=== PATIENT | female | born 1950 | race Caucasian/White ===

== ENCOUNTER 2018-04-18 00:23 | Inpatient (IN) | payer MEDICARE, OTHER ==
[2018-04-17 14:45] LABS: INR 1.01
[2018-04-18] VITALS (16 sets, daily range): BP systolic 96–131; BP diastolic 58–86
[~2018-04-18] VITALS: Ht 167.6 cm; Wt 125.8 kg
[~2018-04-18 00:23] MED LIST: ALLO-119 PO; ASPI-1471 PO; ATOR20TA22 PO; BUDE10.25 IH; CELE-1 PO; DOCU-416 PO; EMPA10TA PO; LANS30TA12 PO; LISI-362 PO; LORA-629 PO; METO25TA23 PO; MONT10TA PO; SERT-184 PO; SITA1TAB13 PO; TIMO5DRO3 OU
[2018-04-18] MEDS ORDERED: TRANEXAMIC AC 1000 MG/10ML SDV 1,000 MG in DEXTROSE 5% 50 ML BAG 50 ML IV ONE (06:15)
[2018-04-18] MEDS ORDERED: cloNIDine EPIDUR INJ 100MCG/ML 40 MCG, ROPIVACAINE 0.5% 20 ML VIAL 25 ML, EPINEPHrine H... INJ ONE (06:15)
[2018-04-18] MEDS ORDERED: PREGABALIN 150 MG CAPSULE PO ONE (06:15)
[2018-04-18] MEDS ORDERED: ACETAMINOPHEN 500 MG TAB PO ONE (06:15)
[2018-04-18] MEDS ORDERED: NORMOSOL R SOLN(*) 1000 ML BAG 1,000 ML IV PRN ×2 (06:15→09:50)
[2018-04-18] MEDS ORDERED: CLINDAMYCIN(*) 900 MG/NS 50 ML 50 ML IVPB ONE (06:15)
[2018-04-18] MEDS ORDERED: MIDAZOLAM 2 MG/2 ML VIAL IVP PRN (06:15)
[2018-04-18] MEDS ORDERED: LIDOCAINE/SOD BICARB 8.4% SYR ID ONE (06:15)
[2018-04-18] MEDS ORDERED: ONDANSETRON 4 MG/2 ML VIAL ONE (07:24)
[2018-04-18] MEDS ORDERED: DEXAMETHASONE SOD PHOS 10MG/ML ONE (07:24)
[2018-04-18] MEDS ORDERED: PROPOFOL EMUL(*) 10MG/ML 20 ML 20 ML ONE (07:24)
[2018-04-18] MEDS ORDERED: PHENYLEPHRINE 10 MG/1 ML VIAL ONE (07:30)
--- NOTE | 2018-04-18 08:07 | HISTORY AND PHYSICAL ---
DATE OF ADMISSION: Apr 18, 2018 IDENTIFICATION/CHIEF COMPLAINT Juhi is a 67-year-old woman with the chief complaint of right knee pain. HISTORY OF PRESENT ILLNESS Patient has a long-standing history of knee arthritis, progressively painful and debilitating, refractory to conservative care. Surgery is indicated to relieve symptoms after failure of nonoperative measures. PAST MEDICAL HISTORY * History of DVT and pulmonary embolus. * History of hypertension, well controlled on medication. * Pulmonary hypertension with mild CHF. * Sleep apnea, uses CPAP. PAST SURGICAL HISTORY * Lumpectomy. * Left tubal ligation. * Oophorectomy. ALLERGIES 1. SULFA. 2. PENICILLIN. CURRENT MEDICATIONS * Celebrex 200 mg p.o. q.day. * Singulair 10 mg p.o. q.day. * Symbicort 80 mcg b.i.d. * Lisinopril 10 mg p.o. q.day. * Jardiance 10 mg p.o. q.day. * Allopurinol 100 mg p.r.n. * Metoprolol 25 mg b.i.d. * Prevacid 30 mg p.o. q.day. * Cetirizine 50 mg p.o. q.day. * Montelukast 10 mg p.o. q.day. * Janumet 500 mg b.i.d. SOCIAL HISTORY Notable for smoking a pack a day of cigarettes for 30 years. Denies alcohol use , abuse or drug use. FAMILY HISTORY Notable for brother with eye cancer, mother with colon cancer and sister with breast cancer. REVIEW OF SYSTEMS Notable for diabetes and fatty liver disease. PHYSICAL EXAMINATION: GENERAL: This is a well-developed, well-nourished female who appears staged age. HEENT: Normocephalic, atraumatic. NECK: Supple. LUNGS: Clear. HEART: Regular. ABDOMEN: Soft. ORTHOPEDIC EXAM: Knee is stiff. Effusion is present. She is stiff and has limitations at the end range. Gross stability is good. Extensor function intact. IMAGING Radiographs demonstrate end-stage knee arthritis. ASSESSMENT Right knee degenerative joint disease progressively painful and debilitating, refractory to conservative care. PLAN Per patient request we are going to proceed with total knee arthroplasty. The nature of the procedure, risks, benefits, the anticipated rehabilitative course were reviewed. The risks of the procedure include, but are not limited to , major medical or anesthetic complication, infection, neurovascular injury, blood transfusion, stiffness, scarring, fracture, tendon rupture or instability , implant loosening, migration or failure, persistent or recurrent pain, need for additional surgery and other unforeseen. She understands and wishes to proceed. A signed permit was placed in the chart. No guarantees are given or implied. Xarelto will be used for DVT prophylaxis due to high risk stratification from prior DVT. SAMMY
[2018-04-18] MEDS ORDERED: MAGNESIUM HYDROXIDE* 30ML UDCP PO PRN (09:50)
[2018-04-18] MEDS ORDERED: FLUSH 10 ML SYR IVP PRN (09:50)
[2018-04-18] MEDS ORDERED: ZOLPIDEM TARTRATE 5 MG TAB PO PRN (09:50)
[2018-04-18] MEDS ORDERED: ACETAMINOPHEN 325 MG TAB PO PRN (09:50)
[2018-04-18] MEDS ORDERED: BISACODYL 10 MG SUPP PR PRN (09:50)
[2018-04-18] MEDS ORDERED: diphenhydrAMINE 50 MG/ML VIAL IVP PRN (09:50)
[2018-04-18] MEDS ORDERED: BENZOCAINE/MENTHOL 1 EACH LOZG PO PRN (09:50)
[2018-04-18] MEDS ORDERED: PROMETHAZINE 25 MG/ML 1 ML AMP IVP PRN (09:50)
[2018-04-18] MEDS ORDERED: diphenhydrAMINE 25 MG CAP PO PRN (09:50)
--- NOTE | 2018-04-18 10:25 | RADIOLOGY IMAGING REPORT ---
FACILITY: [facility] - [place] PATIENT NAME: Juhi Garner : 1950 MR: [id number] V: [id number] EXAM DATE: ORDERING PHYSICIAN: JESSICA FLAHERTY TECHNOLOGIST: Location: [facility] - [place] Patient: Juhi Garner : 1950 Visit/Account:[id number] Date of Sevice: 04/18/2018 Technique: KNEE LIMITED RIGHT HISTORY: S/P TOTAL KNEE ARTHROPLASTY, CHECK PLACEMENT Comparison studies: None FINDINGS: There is no acute fracture. Present is a right knee arthroplasty with patellar resurfacing. The anatomic alignment is maintained. Expected adjacent operative findings are noted. IMPRESSION: 1. Right knee arthroplasty without evidence of hardware complication. Report Dictated By: Philip Haro DO at 04/18/2018 10:19 AM Report E-Signed By: Philip Haro DO at 04/18/2018 10:21 AM WSN:[id number]
[2018-04-18] MEDS ORDERED: METO25TA93 PO (10:56)
--- NOTE | 2018-04-18 11:44 | Hospitalist Consultation ---
History of Present Illness Requesting Physician Dr. Hilliard Reason for Consult Medical Management Chief Complaint s/p right total knee replacement History of Present Illness She was admitted s/p right total knee replacement. It is reported the surgery went well and without complication. History Problems: (1) GERD (gastroesophageal reflux disease) Status: Chronic (2) Hyperlipidemia Status: Chronic (3) Hypertension Status: Chronic (4) Type 2 diabetes mellitus Status: Chronic (5) CHF (congestive heart failure) Status: Chronic (6) COPD (chronic obstructive pulmonary disease) Status: Chronic (7) PARAMJIT (obstructive sleep apnea) Status: Chronic (8) Seasonal allergies Status: Chronic (9) History of DVT (deep vein thrombosis) Status: Resolved Home Meds Reported Medications Metoprolol Tartrate (METOPROLOL TARTRATE) 25 Mg Tablet, 1 TAB PO BID, TAB 04/18/18 Budesonide/Formoterol Fumarate (SYMBICORT 80-4.5 MCG INHALER) 10.2 Gm Hfa.aer.ad , 2 PUFF IH BID 04/11/18 Timolol (BETIMOL) 5 Ml Drops, 1 DROP OU HS 04/11/18 Docusate Sodium (COLACE) 100 Mg Capsule, 100 MG PO HS, CAPSULE 04/11/18 Montelukast Sodium (SINGULAIR) 10 Mg Tablet, 1 TAB PO HS, TAB 04/11/18 Atorvastatin Calcium (LIPITOR) 20 Mg Tablet, 1 TAB PO HS, TAB 04/11/18 Aspirin (ASPIR 81) 81 Mg Tablet.dr, 81 MG PO QDAY, TAB 04/11/18 Loratadine (LORATADINE) 10 Mg Tablet, 10 MG PO DAILY 04/11/18 Empagliflozin (Jardiance) 10 Mg Tablet, 1 TAB PO DAILY 04/11/18 Allopurinol (ZYLOPRIM) 300 Mg Tablet, 100 MG PO QDAY, TAB 04/11/18 Celecoxib (CELEBREX) 200 Mg Capsule, 200 MG PO QDAY, CAPSULE 04/11/18 Sertraline Hcl (SERTRALINE HCL) 50 Mg Tablet, 1 TAB PO QDAY, TAB 04/11/18 Lisinopril (LISINOPRIL) 10 Mg Tablet, 10 MG PO QDAY, TAB 04/11/18 Lansoprazole (PREVACID) 30 Mg Tab.rap.dr, 30 MG PO QDAY, TAB 5/29/18 Sitagliptin Phos/Metformin Hcl (JANUMET 50-500 MG TABLET) 1 Each Tablet, 1 TAB PO BID 04/11/18 Discontinued Reported Medications Metoprolol Succinate (METOPROLOL SUCCINATE) 25 Mg Tab.er.24h, 1 TAB PO BID, TAB 04/11/18 Allergies: Coded Allergies: Penicillins (Verified Allergy, Severe, REDNESS, ITCHING, 04/11/18) Sulfa (Sulfonamide Antibiotics) (Verified Allergy, Severe, REDNESS, ITCHING, 04/11/18) Patient History: FH: breast cancer MOTHER FH: colon cancer MOTHER FH: diabetes mellitus MOTHER Hx Smoking: Yes (1 PPD X 30. QUIT 1999) Smoking Status: Former Smoker When Quit Tobacco?: QUIT 1999 Caffeine/Cups Per Day: NONE Hx Alcohol Use: No Hx Substance Use Disorder: No Social Drug Use: Never History of IV Drug Use: No Review of Systems All Systems Reviewed/Normal: Yes, Except as Noted Exam Vital Signs Vital Signs Date Time Temp Pulse Resp B/P (MAP) Pulse Ox O2 Delivery O2 Flow Rate FiO2 04/18/18 11:11 91 Nasal Cannula 3.0 04/18/18 10:50 97.8 80 18 131/58 (82) General Appearance: Alert, Awake, No Acute Distress, Afebrile Neuro: No Gross deficits Cardiovascular: Regular Rate and Rhythm Respiratory: No Respiratory Distress, Clear to Auscultation GI: Abd Soft and Non-Tender Psych: Alert & Oriented X3, Appropriate Mood & Affect Assessment and Plan Problems: (1) Status post total right knee replacement Status: Acute Assessment & Plan: Followed by Dr. Hilliard. She will be placed on Xarelto for DVT prophylaxis since she has a history of DVT and PE 6 years ago. (2) History of DVT (deep vein thrombosis) Status: Resolved Assessment & Plan: See above. (3) Type 2 diabetes mellitus Status: Chronic Assessment & Plan: She is on chronic treatment with Janumet and Jardiance. She will be restarted on Janumet tomorrow, but we will hold Jardiance at this time. She will get AC and HS blood sugars, ADA diet, and sliding scale insulin #2. (4) Hypertension Status: Chronic Assessment & Plan: She is on chronic treatment with Lisinopril and Metoprolol. These have been restarted with hold parameters. (5) COPD (chronic obstructive pulmonary disease) Status: Chronic Assessment & Plan: She is on chronic treatment with Symbicort. (6) Seasonal allergies Status: Chronic Assessment & Plan: She is on chronic treatment with Loratadine. (7) Hyperlipidemia Status: Chronic Assessment & Plan: She is on chronic treatment with Atorvastatin. (8) GERD (gastroesophageal reflux disease) Status: Chronic Assessment & Plan: She is on chronic treatment with Prevacid. (9) PARAMJIT (obstructive sleep apnea) Status: Chronic Assessment & Plan: She no longer requires CPAP, but she does wear oxygen at all times. (10) Morbid obesity with BMI of 40.0-44.9, adult Status: Chronic Venous Thromboembolism Antithrombotics Is Pt On Any Antithrombotics?: No Exam Sepsis Risk: No Definite Risk SHANT FAN CUSTOMS VERIFIER Apr 18, 2018 11:44
--- NOTE | 2018-04-18 13:12 | OPERATIVE REPORT 1 ---
EVENT DATE: April 18, 2018 SURGEON: Uriel Hilliard MD ANESTHESIOLOGIST: Yasir Alfaro MD ANESTHESIA: General plus spinal. TURBINE ATTENDANT: Ramirez Ferrer PA-C PREOPERATIVE DIAGNOSIS Right knee degenerative joint disease. POSTOPERATIVE DIAGNOSIS Right knee degenerative joint disease. PROCEDURE PERFORMED Right total knee arthroplasty. ESTIMATED BLOOD LOSS Minimal. DRAINS None. SPECIMENS None. COMPLICATIONS No apparent. TOURNIQUET TIME 43 minutes. IMPLANTS USED Rossy Triathlon Knee System, 4 right PS femur, 4 standard tibial base plate, 33 mm Milmine symmetric all polyethylene patellar button and an 11 mm PS tibial tray liner. Polyethylene is X3. INDICATIONS The patient is a 68-year-old woman with intractable pain related to end-stage knee arthritis. Surgery is indicated to relieve pain and improve function after failure of nonoperative measures. DESCRIPTION OF PROCEDURE Patient is taken to the operating room, placed supine on the operating room table. Spinal block is administered by the anesthesiologist, general anesthesia induced. Antibiotics and TXA are administered IV. Right lower extremity is prepped and draped in usual sterile fashion for orthopedic surgery. Limb is exsanguinated with an Esmarch bandage, tourniquet inflated to 300 mmHg. Midline longitudinal incision is made, carried down through the skin and subcutaneous tissue to the extensor mechanism. Full thickness flap is developed far enough medially to allow medial parapatellar arthrotomy to be performed. Patella is everted. Knee is brought into flexed position. Fat pad , anterior horns of the menisci and the cruciate ligaments are debrided. Subperiosteal medial release is initiated in titrated fashion to start to balance the knee. Step-drill is used to enter the distal femur. A 10 inch long alignment guide is used to engage the isthmus. Cut is set for 6 degrees valgus relative to the anatomic axis. A 10 mm resection block is applied, pinned, cuts made with an oscillating saw. AP sizing guide is applied to the distal femoral cut, positioned for 3 degrees of external rotation relative to the posterior condyles. Size 4 is optimal without risk of notching. The 4-in- 1 cutting block is applied. Anterior, posterior, posterior chamfer and anterior chamfer cuts are made respectively. PS block is applied. Center medial and lateral bone is removed for the box. Trial femur has good line to line fit. Attention is turned to tibial preparation. The extramedullary guide is applied, positioned for varus, valgus, posterior slope and rotation. This is set to resect 9 mm from the relatively intact lateral tibial plateau. It is dropped down a millimeter or so to ensure an adequate cut. Block is pinned, extramedullary alignment check. Cuts are made with an oscillating saw. After osteophyte removal, the gaps were balanced and symmetric with no additional releases required. The 4 tibial base plate provides good bony coverage without soft tissue overhang. This is inserted along with a trial liner and trial femur. Knee is brought to extension. Patella is taken from a starting thickness of 23 mm to residual of 14 with a patellar clamp and oscillating saw. The 33 provides optimal coverage. Lug holes are drilled. The patella tends to sublux laterally due to extremely tight lateral retinaculum. After checking that the rotational alignment is good on the other components, inside out lateral release is performed with electrocautery using standard technique. Subsequently the patella tracks nicely. Final tibial preparation consists of ensuring appropriate rotational and translational position of the component. The box is reamed. Fin is punched. Surfaces are copiously lavaged. A mix of poly methyl methacrylate is made, and the components are cemented in a single stage. When the cement is fully polymerized, tourniquet is deflated. Hemostasis is ensured. Wound is copiously lavaged to remove all loose debris. The 11 PS tibial tray liner fills up the gap ideally, allowing the knee to drop to full extension without hyperextension, providing optimal soft tissue tension and stability. The trial is removed. Liner is cleaned, and the actual liner is locked into the base plate. Joint is reduced. Arthrotomy is closed in flexion with #2 Ethibond, subcu with 3-0 Vicryl, skin with surgical aline. Xeroform to Profore, dry sterile dressing, compression wrap. Patient awakened from anesthesia and taken to recovery room in stable condition, having tolerated procedure well. Plan is for standard TK rehab protocol. [facility], [place]
[2018-04-18] MEDS: CLINDAMYCIN(*) 900 MG/NS 50 ML 50 ML IVPB SCH ×2 (14:39→23:14)
[2018-04-18] MEDS: IBUPROFEN 800 MG TAB PO SCH (17:10)
[2018-04-18] MEDS: INSULIN HUM LISPRO 100 UN/ML 3 ML VIAL SUBQ PRN ×2 (17:14→21:07)
[2018-04-18] MEDS: BUDESO/FORMOT 80/4.5 MCG 6.9GM INH SCH (17:18)
[2018-04-18] MEDS: ATORVASTATIN 40 MG TAB PO SCH (21:06)
[2018-04-18] MEDS: MONTELUKAST SODIUM 10 MG TAB PO SCH (21:06)
[2018-04-18] MEDS: METOPROLOL TART 50 MG TAB PO SCH (21:07)
[2018-04-18] MEDS: TIMOLOL MAL 0.25% OP SOLN 5 ML OU SCH (21:07)
[2018-04-18] MEDS: APAP/HYDROCODONE 325/7.5 TAB PO PRN (21:17)
[2018-04-19] VITALS (7 sets, daily range): BP systolic 101–121; BP diastolic 53–65; Ht 167.6 cm; Wt 125.8 kg
[2018-04-19] MEDS: IBUPROFEN 800 MG TAB PO SCH ×3 (01:00→16:28)
[2018-04-19] MEDS: APAP/HYDROCODONE 325/7.5 TAB PO PRN ×4 (02:34→14:50)
[2018-04-19] MEDS: BUDESO/FORMOT 80/4.5 MCG 6.9GM INH SCH ×3 (06:00→16:53)
[2018-04-19] MEDS: CLINDAMYCIN(*) 900 MG/NS 50 ML 50 ML IVPB SCH (06:29)
[2018-04-19] MEDS: LANSOPRAZOLE 15 MG CAPCR PO SCH (09:12)
[2018-04-19] MEDS: metFORMIN HCL 500 MG TAB PO SCH ×2 (09:13→20:22)
[2018-04-19] MEDS: SERTRALINE HCL 50 MG TAB PO SCH (09:13)
[2018-04-19] MEDS: LORATADINE 10 MG TAB PO SCH (09:14)
[2018-04-19] MEDS: RIVAROXABAN 10 MG TAB PO SCH (09:14)
[2018-04-19] MEDS: ALLOPURINOL 100 MG TAB PO SCH (09:15)
[2018-04-19] MEDS: METOPROLOL TART 50 MG TAB PO SCH ×2 (09:16→20:22)
[2018-04-19] MEDS: LISINOPRIL 10 MG TAB PO SCH (09:16)
--- NOTE | 2018-04-19 10:24 | Hospitalist Progress Note ---
Subjective Progress Notes Subjective She has no concerns this morning. She had no acute events overnight. Patient Complains of: Cardiovascular: No: Chest Pain Respiratory: No: Shortness of Breath Physical Exam Vital Signs Date Time Temp Pulse Resp B/P (MAP) Pulse Ox O2 Delivery O2 Flow Rate FiO2 04/19/18 09:16 115/61 (79) 04/19/18 07:33 98.1 59 16 95 Nasal Cannula 2.5 Intake and Output 04/20/18 06:59 Intake Total 240 ml Balance 240 ml Intake Oral 240 ml # Voids 1 General Appearance: Alert, Awake, No Acute Distress, Afebrile Neuro: No Gross deficits Cardiovascular: Regular Rate and Rhythm Respiratory: No Respiratory Distress, Clear to Auscultation GI: Soft and Non-Tender Psych: Alert & Oriented X3, Appropriate Mood & Affect Assessment and Plan Problems: (1) Status post total right knee replacement Status: Acute Assessment & Plan: Followed by Dr. Hilliard. She will be placed on Xarelto for DVT prophylaxis since she has a history of DVT and PE 6 years ago. (2) History of DVT (deep vein thrombosis) Status: Resolved Assessment & Plan: See above. (3) Type 2 diabetes mellitus Status: Chronic Assessment & Plan: She is on chronic treatment with Janumet and Jardiance. She will be restarted on Janumet tomorrow, but we will hold Jardiance at this time. She will get AC and HS blood sugars, ADA diet, and sliding scale insulin #2. (4) Hypertension Status: Chronic Assessment & Plan: She is on chronic treatment with Lisinopril and Metoprolol. These have been restarted with hold parameters. (5) COPD (chronic obstructive pulmonary disease) Status: Chronic Assessment & Plan: She is on chronic treatment with Symbicort. (6) Seasonal allergies Status: Chronic Assessment & Plan: She is on chronic treatment with Loratadine. (7) Hyperlipidemia Status: Chronic Assessment & Plan: She is on chronic treatment with Atorvastatin. (8) GERD (gastroesophageal reflux disease) Status: Chronic Assessment & Plan: She is on chronic treatment with Prevacid. (9) PARAMJIT (obstructive sleep apnea) Status: Chronic Assessment & Plan: She no longer requires CPAP, but she does wear oxygen at all times. (10) Morbid obesity with BMI of 40.0-44.9, adult Status: Chronic Exam Sepsis Risk: No Definite Risk FAN,SHANT M SLOT MACHINE KEY PERSON Apr 19, 2018 10:24
[2018-04-19] MEDS: DIAZEPAM 5 MG TAB PO PRN ×3 (11:31→22:44)
[2018-04-19] MEDS ORDERED: MORPHINE 4 MG/ML SDV IVP ONE (16:45)
[2018-04-19] MEDS: ATORVASTATIN 40 MG TAB PO SCH (20:21)
[2018-04-19] MEDS: MONTELUKAST SODIUM 10 MG TAB PO SCH (20:22)
[2018-04-19] MEDS: TIMOLOL MAL 0.25% OP SOLN 5 ML OU SCH (21:00)
[2018-04-20] MEDS: IBUPROFEN 800 MG TAB PO SCH ×3 (00:36→16:27)
[2018-04-20 04:57] VITALS: BP 107/63
[2018-04-20] MEDS: APAP/HYDROCODONE 325/7.5 TAB PO PRN ×3 (05:00→16:27)
[2018-04-20] MEDS: BUDESO/FORMOT 80/4.5 MCG 6.9GM INH SCH ×2 (05:26→18:25)
[2018-04-20 08:00] VITALS: BP 110/60
[2018-04-20] MEDS: LISINOPRIL 10 MG TAB PO SCH (08:21)
[2018-04-20] MEDS: ALLOPURINOL 100 MG TAB PO SCH (08:21)
[2018-04-20] MEDS: SERTRALINE HCL 50 MG TAB PO SCH (08:22)
[2018-04-20] MEDS: LORATADINE 10 MG TAB PO SCH (08:22)
[2018-04-20] MEDS: METOPROLOL TART 50 MG TAB PO SCH ×2 (08:22→20:52)
[2018-04-20] MEDS: RIVAROXABAN 10 MG TAB PO SCH (08:22)
[2018-04-20] MEDS: metFORMIN HCL 500 MG TAB PO SCH ×2 (08:22→20:48)
[2018-04-20] MEDS: LANSOPRAZOLE 15 MG CAPCR PO SCH (08:23)
--- NOTE | 2018-04-20 11:13 | Hospitalist Progress Note ---
Subjective Progress Notes Subjective She has no concerns today. She had no acute events overnight. Patient Complains of: Cardiovascular: No: Chest Pain Respiratory: No: Shortness of Breath Physical Exam Vital Signs Date Time Temp Pulse Resp B/P (MAP) Pulse Ox O2 Delivery O2 Flow Rate FiO2 04/20/18 05:22 61 16 04/20/18 05:22 95 Nasal Cannula 2.0 04/20/18 04:57 98.4 107/63 (78) Intake and Output 04/21/18 06:59 Intake Total 240 ml Balance 240 ml Intake Oral 240 ml # Voids 1 General Appearance: Alert, Awake, No Acute Distress, Afebrile Neuro: No Gross deficits Cardiovascular: Regular Rate and Rhythm Respiratory: No Respiratory Distress, Clear to Auscultation GI: Soft and Non-Tender Psych: Alert & Oriented X3, Appropriate Mood & Affect Assessment and Plan Problems: (1) Status post total right knee replacement Status: Acute Assessment & Plan: Followed by Dr. Hilliard. She will be placed on Xarelto for DVT prophylaxis since she has a history of DVT and PE 6 years ago. (2) History of DVT (deep vein thrombosis) Status: Resolved Assessment & Plan: See above. (3) Type 2 diabetes mellitus Status: Chronic Assessment & Plan: She is on chronic treatment with Janumet and Jardiance We will hold Jardiance at this time. She will get AC and HS blood sugars, ADA diet , and sliding scale insulin #2. (4) Hypertension Status: Chronic Assessment & Plan: She is on chronic treatment with Lisinopril and Metoprolol. These have been restarted with hold parameters. (5) COPD (chronic obstructive pulmonary disease) Status: Chronic Assessment & Plan: She is on chronic treatment with Symbicort. (6) Seasonal allergies Status: Chronic Assessment & Plan: She is on chronic treatment with Loratadine. (7) Hyperlipidemia Status: Chronic Assessment & Plan: She is on chronic treatment with Atorvastatin. (8) GERD (gastroesophageal reflux disease) Status: Chronic Assessment & Plan: She is on chronic treatment with Prevacid. (9) PARAMJIT (obstructive sleep apnea) Status: Chronic Assessment & Plan: She no longer requires CPAP, but she does wear oxygen at all times. (10) Morbid obesity with BMI of 40.0-44.9, adult Status: Chronic Exam Sepsis Risk: No Definite Risk SHANT FAN PRODUCTION ARTIST Apr 20, 2018 11:12
[2018-04-20 15:39] VITALS: BP 101/63
[2018-04-20 20:27] VITALS: BP 109/63
[2018-04-20] MEDS: TIMOLOL MAL 0.25% OP SOLN 5 ML OU SCH (20:48)
[2018-04-20] MEDS: ATORVASTATIN 40 MG TAB PO SCH (20:48)
[2018-04-20] MEDS: MONTELUKAST SODIUM 10 MG TAB PO SCH (20:49)
[2018-04-21 00:12] VITALS: BP 103/61
[2018-04-21] MEDS: IBUPROFEN 800 MG TAB PO SCH ×2 (00:36→09:30)
[2018-04-21] MEDS: APAP/HYDROCODONE 325/7.5 TAB PO PRN ×2 (00:37→09:32)
[2018-04-21 03:16] VITALS: BP 116/65
[2018-04-21] MEDS: BUDESO/FORMOT 80/4.5 MCG 6.9GM INH SCH (05:41)
[2018-04-21] MEDS ORDERED: HYDR-4308 PO (08:04)
[2018-04-21] MEDS ORDERED: RIV10 PO (08:05)
[2018-04-21 08:35] VITALS: BP 118/65
--- NOTE | 2018-04-21 09:10 | Hospitalist Progress Note ---
Subjective Progress Notes Subjective She has no concerns this morning. She had no acute events overnight. Patient Complains of: Cardiovascular: No: Chest Pain Respiratory: No: Shortness of Breath Physical Exam Vital Signs Date Time Temp Pulse Resp B/P (MAP) Pulse Ox O2 Delivery O2 Flow Rate FiO2 04/21/18 08:53 Nasal Cannula 04/21/18 08:35 99.1 80 18 118/65 (82) 94 2.0 Intake and Output 04/22/18 00:59 # Voids 1 General Appearance: Alert, Awake, No Acute Distress, Afebrile Neuro: No Gross deficits Cardiovascular: Regular Rate and Rhythm Respiratory: No Respiratory Distress, Clear to Auscultation GI: Soft and Non-Tender Psych: Alert & Oriented X3, Appropriate Mood & Affect Assessment and Plan Problems: (1) Status post total right knee replacement Status: Acute Assessment & Plan: Followed by Dr. Hilliard. She will be placed on Xarelto for DVT prophylaxis since she has a history of DVT and PE 6 years ago. (2) History of DVT (deep vein thrombosis) Status: Resolved Assessment & Plan: See above. (3) Type 2 diabetes mellitus Status: Chronic Assessment & Plan: She is on chronic treatment with Janumet and Jardiance. (4) Hypertension Status: Chronic Assessment & Plan: She is on chronic treatment with Lisinopril and Metoprolol. These have been restarted with hold parameters. (5) COPD (chronic obstructive pulmonary disease) Status: Chronic Assessment & Plan: She is on chronic treatment with Symbicort. (6) Seasonal allergies Status: Chronic Assessment & Plan: She is on chronic treatment with Loratadine. (7) Hyperlipidemia Status: Chronic Assessment & Plan: She is on chronic treatment with Atorvastatin. (8) GERD (gastroesophageal reflux disease) Status: Chronic Assessment & Plan: She is on chronic treatment with Prevacid. (9) PARAMJIT (obstructive sleep apnea) Status: Chronic Assessment & Plan: She no longer requires CPAP, but she does wear oxygen at all times. (10) Morbid obesity with BMI of 40.0-44.9, adult Status: Chronic Exam Sepsis Risk: No Definite Risk SHANT FAN INFORMATION SYSTEMS AUDIT MANAGER Apr 21, 2018 09:10
[2018-04-21] MEDS: ALLOPURINOL 100 MG TAB PO SCH (09:30)
[2018-04-21] MEDS: RIVAROXABAN 10 MG TAB PO SCH (09:30)
[2018-04-21] MEDS: LISINOPRIL 10 MG TAB PO SCH (09:30)
[2018-04-21] MEDS: metFORMIN HCL 500 MG TAB PO SCH (09:31)
[2018-04-21] MEDS: METOPROLOL TART 50 MG TAB PO SCH (09:31)
[2018-04-21] MEDS: LORATADINE 10 MG TAB PO SCH (09:32)
[2018-04-21] MEDS: SERTRALINE HCL 50 MG TAB PO SCH (09:33)
[2018-04-21] MEDS: LANSOPRAZOLE 15 MG CAPCR PO SCH (09:33)
== END 2018-04-21 09:55 | disposition home or self-care (01) | DRG 470 ==
LOC: OR 00:23 → MED 10:45
PROVIDERS: ADMIT Orthopaedic Surgery; ATTEND Orthopaedic Surgery
PROC: 0SRC0J9 Replacement of Right Knee Joint with Synthetic Substitute, Cemented, Open Approach (ICD-10-PCS; principal; 2018-04-18 07:15)
DX: M17.11 Unilateral primary osteoarthritis, right knee (principal); Z68.41 Body mass index [BMI] 40.0-44.9, adult; I11.0 Hypertensive heart disease with heart failure; G47.33 Obstructive sleep apnea (adult) (pediatric); E66.01 Morbid (severe) obesity due to excess calories; K21.9 Gastro-esophageal reflux disease without esophagitis; I27.20 Pulmonary hypertension, unspecified; I50.9 Heart failure, unspecified; E78.5 Hyperlipidemia, unspecified; E11.9 Type 2 diabetes mellitus without complications; J44.9 Chronic obstructive pulmonary disease, unspecified; J30.2 Other seasonal allergic rhinitis; Z96.652 Presence of left artificial knee joint; Z88.2 Allergy status to sulfonamides; Z99.81 Dependence on supplemental oxygen; Z88.0 Allergy status to penicillin; Z86.718 Personal history of other venous thrombosis and embolism; Z87.891 Personal history of nicotine dependence
CPT/HCPCS: 36415; 36416; 82948; 83880; 85610; 86850; 86900; 86901; 94640; 97161; J0171; J0735; J1100; J1885; J2250; J2270; J2370; J2405; J2704; J2795; J3490; J7050; J7060